=== PATIENT | female | born 1970 | race Caucasian/White ===

== ENCOUNTER 2021-02-18 08:20 | Outpatient (CLI) | payer BC, SELFPAY ==
--- NOTE | 2021-02-18 08:00 | ECG_ITS ---
Measurements Intervals [place] Rate: 75 P: 20 [place]: 149 QRS: 30 QRSD: 101 T: 21 QT: 354 QTc: 396 Interpretive Statements SINUS RHYTHM MINIMAL Q WAVES- INFERIOR LEADS BORDERLINE ECG Electronically Signed On 02-18-2021 16:22:50 CASHIER OR CHECKER STOCK CLERK by Anirudh Albrecht D.O.
== END 2021-02-18 08:21 | disposition home or self-care (01) ==
LOC: ANHSURGERY 08:24
PROVIDERS: PCP Family Medicine; Visit Provider Otolaryngology
DX: Z01.810 Encounter for preprocedural cardiovascular examination (principal); I10 Essential (primary) hypertension
CPT/HCPCS: 93005

== ENCOUNTER → 2021-02-19 00:31 | Outpatient (CLI) | payer BC, SELFPAY ==
[2021-02-19 20:10] LABS: SARS-CoV-2 RNA PCR Negative
== END ==
PROVIDERS: PCP Family Medicine; Visit Provider Otolaryngology
DX: Z01.812 Encounter for preprocedural laboratory examination (principal); Z20.822 Contact with and (suspected) exposure to COVID-19
CPT/HCPCS: C9803; U0003; U0005

== ENCOUNTER 2021-02-22 00:45 | Day surgery (SDC) | payer BC, SELFPAY ==
[2021-02-15 14:42] VITALS: BMI 44.9
--- NOTE | 2021-02-15 14:58 | PC.NURSE ---
Report to the Outpatient Waiting Room, entrance under the green pavilion located off [facility], at time 6:15 on date 02/22/21. OR Time: 8:15. - You and your visitor will be asked a series of questions to screen for COVID 19 for your protection. - A mask is required within the hospital. - Only one visitor is allowed at this time. Patient visitors will be guided where to wait when not with patient. Preoperative COVID Testing Requirements: No COVID Test needed if: (proof is required; if not received patient will have Rapid Test prior to entry) - Patient has received COVID Vaccine at least 14 days prior to procedure date or - Patient has positive COVID test result within last 90 days of surgery date. COVID Test needed if above criteria is not met If not COVID vaccinated a COVID test must be conducted within 72 hours of surgery and patient is asked to isolate self from time of testing until procedure. You will go to the [employer] [facility] for your COVID testing. The [employer] [facility] is located at the corner of [address] [facility]. COVID TEST 02/19 AT 9:15 You will only be called if COVID results are positive and your surgeon may reschedule your elective surgery date. Patients may have clear liquids (water, carbonated beverages, clear teas, apple juice) until 3 hours prior to surgery with a maximum of 20 ounces. - No food from midnight until time of surgery - Infants may have breast milk until 4 hours before surgery, infant formula 6 hours prior to surgery. - Children will be allowed to drink immediately following surgery. If applicable, please bring a bottle or sippy cup to assist with drinking. Juice, water, soda, and popsicles are readily available. For infants on formula, please bring formula the day of surgery. Pacifiers are allowed. Take the following medications with a SIP of water the morning of surgery: METOPROLOL Medications to discontinue per physician: VITAMINS/SUPPLEMENTS Date to take last dose: 02/18/21 Please no make-up, nail nepalese, hairspray, perfume, deodorant, or body powder the day of surgery. No jewelry (including any body piercings) or valuables the day of surgery, leave them at home. Please take a shower or bath the night before, or the morning of, surgery with an antibacterial soap. Wear comfortable, loose fitting clothing. Children are encouraged to wear pajamas. - Jewelry must be removed prior to entering the operating room. Rings and piercings that are not removed may be cut off. - The hospital will not accept responsibility for valuables. - Please leave all valuables, including medications, at home the day of surgery. If you are going home after surgery, a licensed tow motor driver must drive you home. - NO public transportation without another adult. - We recommend that an adult stay with you for 24 hours following discharge. - We also recommend that you do not drive, make important decision, drink alcoholic beverages, or take any drugs that were not prescribed by your health care provider for at least 24 hours after your discharge time. For Pediatric surgeries, we recommend two adults accompany the child home (only one inside the building at this time). Follow any additional instructions given to you from your surgeon. Telephone instructions given to DEXTER BROWN and asked if any additional questions and then verbalized understanding. Patient advised to call surgeon office or pre surgery nurse liaison [phone] if any additional questions.
--- NOTE | 2021-02-21 12:50 | PM.IMHP ---
H&P: HPI History of Present Illness Date/Time: 02/21/21 12:50 Chief Complaint: Choking, coughing, gagging, thyroid nodule Narrative: patient presents for planned surgical procedure. No change in symptoms no change in history. Review of Systems Constitutional: Constitutional: Denies fatigue, Denies fever(s) and Denies lethargy Eyes: Eyes: Denies blurry vision and Denies change in vision ENT: Reports as per HPI Cardiovascular: Cardiovascular: Denies chest pain Respiratory: Respiratory: Denies cough Endocrine: Endocrine: Denies fatigue Hematologic/Lymphatic: Hematologic/Lymphatic: Denies easy bleeding, Denies easy bruising and Denies lymphadenopathy Allergic/Immunologic: Allergic/Immunologic: Denies seasonal rhinorrhea [facility] Past Medical History Medical History Allergies Arthritis Degenerative arthritis of knee, bilateral Hypertension Surgical History Surgical History History of appendectomy History of carpal tunnel surgery right 2009 left 2013 Family History Family History Father Hypertension Cerebrovascular accident Mother Hypertension Sibling Hypertension Grandparent Diabetes mellitus Hypertension Cerebrovascular accident Heart disease Stomach cancer Grandparent Leukemia Social History Social History Smoking packs per day: 0.5 Smoking cigarettes per day: 10.0 Years smoked: 9 Smoking pack-years: 4.50 Smoking status: Former smoker Tobacco type: cigarettes Second hand tobacco smoke exposure: No Smoking end date: 03/12/95 Alcohol intake: current Drinks per week: 6 Alcohol use details: wine/bourbon Substance use: current Substance use type: marijuana Last use: 01/25/21 Additional occupation/education comments: customer service, dispatcher Gender identity (if verbalized by the patient): Female Spiritual care concerns: No Agree to blood products: Yes Meds Home Medications and Allergies Home Medications Medication Instructions Recorded Confirmed Type hydrochlorothiazide 25 mg tablet 25 mg PO DAILY #90 tablet 11/24/20 02/15/21 Rx metoprolol succinate 25 mg 25 mg PO DAILY 01/21/21 02/15/21 History tablet,extended release 24 hr cholecalciferol (vitamin D3) 1,250 1,250 mcg PO WEEKLY #12 cap 01/26/21 02/15/21 Rx mcg (50,000 unit) capsule Allergies Allergy/AdvReac Type Severity Reaction Status Date / Time lisinopril Allergy Rash Verified 02/15/21 14:41 Exam Const: General: cooperative, healthy appearing, comfortable, well developed and alert HENMT: Head: normal to inspection, normocephalic and atraumatic Ears: hearing grossly normal bilaterally, external ears normal, TM's normal bilaterally and EAC's normal General nose exam: Normal external nose present, Normal nares present, No nasal polyps present, Normal nasal mucous membranes and turbinates present and Normal septum present Face and sinus: normal facial exam Mouth: Yes Normal oral and palatal mucosa present, Yes lip normal, Yes tongue normal, Yes oropharynx normal and Yes moist mucous membranes Teeth and gingiva: dentition normal and gingiva normal Throat: posterior oropharynx normal, tonsils normal and uvula midline Eyes: General: appearance normal, both eyes and all related structures Periorbital: periorbital findings normal Eyelids: eyelids normal Conjunctivae: conjunctivae normal Sclera: sclerae normal Neck: Neck: normal visual inspection, full ROM and no lymphadenopathy Thyroid: abnormal thyroid and solitary palpable nodule ( Isthmus) centrally Lymphatic: no lymphadenopathy noted Resp: Effort & Inspection: normal respiratory effort and able to speak in complete sentences Cardio: Jugular venous distension: no JVD Neuro: Rental Representative
[2021-02-22] VITALS (9 sets, daily range): BP systolic 127–168; BP diastolic 78–102; PULSE 69–97; RESP 9–20; TEMP 36.2–36.4; O2SAT 92–98
[2021-02-22] MEDS: ACETAMINOPHEN 500 MG TABLET 1000 MG PO (06:41)
[2021-02-22] MEDS: LACTATED RINGERS 1,000 ML 30 ML IV CONT ×2 (06:45→08:51)
--- NOTE | 2021-02-22 06:55 | WPDANESEPPF ---
Anes - Initial Pre Proc Eval Procedure: Operation Date: 02/22/21 08:15 Proposed Procedures p Thyroidectomy (Isthmus) with Laryngeal Nerve Monitor - Adolph Ledesma MD Date/Time: 02/22/21 06:55 Surgeon: Adolph Ledesma MD Pre Op Diagnosis: Fibroid nodule Isthmus Patient Data Age: 50 Gender: F Height: 1.65 m Weight: 122.47 kg Allergies Allergy/AdvReac Type Severity Reaction Status Date / Time lisinopril AdvReac Mild Rash Verified 02/22/21 06:25 Home Medications Medication Instructions Recorded Confirmed Type hydrochlorothiazide 25 mg tablet 25 mg PO DAILY #90 tablet 11/24/20 02/22/21 Rx metoprolol succinate 25 mg 25 mg PO DAILY 01/21/21 02/22/21 History tablet,extended release 24 hr cholecalciferol (vitamin D3) 1,250 1,250 mcg PO WEEKLY #12 cap 01/26/21 02/22/21 Rx mcg (50,000 unit) capsule Patient hx anesthesia problems: none Family hx anesthesia problems: none Results Review: All pre-operative results and documents have been reviewed as part of the pre-operative evaluation. REPLACED BY [facility] Past Medical History Medical History Allergies Arthritis Degenerative arthritis of knee, bilateral Hypertension Surgical History Surgical History History of appendectomy History of carpal tunnel surgery right 2009 left 2013 Family History Family History Father Hypertension Cerebrovascular accident Mother Hypertension Sibling Hypertension Grandparent Diabetes mellitus Hypertension Cerebrovascular accident Heart disease Stomach cancer Grandparent Leukemia Social History Social History (Updated 02/22/21 @ 06:55 by Jesus Blum MD) Smoking packs per day: 0.5 Smoking cigarettes per day: 10.0 Years smoked: 9 Smoking pack-years: 4.50 Smoking status: Former smoker Tobacco type: cigarettes Second hand tobacco smoke exposure: No Smoking end date: 03/12/95 Alcohol intake: current Drinks per week: 4 Alcohol use details: wine/bourbon Substance use: current Substance use type: marijuana Last use: 01/25/21 Living arrangements: with family Additional occupation/education comments: customer service, dispatcher Gender identity (if verbalized by the patient): Female Spiritual care concerns: No Agree to blood products: Yes Anes - Eval Final PreProcedure Day of Procedure 02/22/21 06:55 Patient weight: morbidly obese Heart: regular rate and rhythm Lungs: clear to auscultation Airway: Mallampati scale class II Neurological: alert and oriented Last oral intake: >/= 8 hours ASA classification: III Emergent: no Anesthetic plan: proceed Anesthesia type and monitoring: general ETT and standard monitoring Results Review: All pre-operative results and documents have been reviewed as part of the pre-operative evaluation. Informed Consent: The patient's anesthetic plan and its attendant risks and benefits were discussed with the patient/family/POA. Questions were solicited and answers provided to the satisfaction of the patient/family/POA.
--- NOTE | 2021-02-22 07:16 | WPDHPUPDATE1 ---
History and Physical Update Update Date/Time: 02/22/21 07:16 History and Physical has been reviewed, including an updated exam of the patient. There are NO changes in the patient's condition. Risks, benefits, and alternatives have been discussed and questions answered. Patient agrees to proceed with procedure.
[2021-02-22] MEDS: ceFAZolin 3 GM/D5W 100 ML 100 ML IVPB (07:29)
[2021-02-22] MEDS: LIDO 1%/EPINEPHRINE/PF 1:200,000 30 ML VIAL XX (07:56)
[2021-02-22] MEDS: fentaNYL CITRATE INJ (*CRX) 100 MCG/2 ML VIAL 25 MCG IV PUSH ×2 (08:57→09:13)
--- NOTE | 2021-02-22 09:01 | W.PM.PROC2 ---
Procedure Note - Detailed Date of Procedure 02/22/21 Pre-op Diagnosis Thyroid isthmus nodule, compression, choking, gagging, coughing Post-op Diagnosis same Procedure Performed Thyroid isthmusectomy Surgeon Adolph Ledesma MD Anesthesia general Indications See above Findings Large thyroid isthmus nodule removed with a small cuff of bilateral lobe tissue around it Description of Procedure Patient correctly identified consent verified in the preoperative holding area. Patient brought to OR. Time-out performed. General anesthesia induced endotracheal tube secured an airway. Patient prepped and draped a 2nd time-out performed midline surgical incision approximately 4 cm long marked. A 2.5 cc of 1% lidocaine with 1 100,000 parts epinephrine injected deep to it. Fifteen blade utilized to cut through skin epidermis and dermis. Platysma cut with Bovie electrocautery at a setting of 10 small subplatysmal flaps elevated ligature utilized to ligate the right anterior jugular vein. Nodule dissected using combination blunt dissection and ligature small branches of the bilateral inferior thyroid arteries were ligated supplying the very large isthmus nodule and isthmus. Isthmus dissected around using ligature and no time were the horizontal or lateral planes of the trachea dissected through meaning at no time was the tracheoesophageal groove and subsequently recurrent laryngeal nerves at risk. No parathyroids were identified. The lobe was removed. Patient to Anesthesia Valsalva. No bleeding noted hemostasis was excellent. The superior strap muscles were closed with 3-0 interrupted Vicryl. Platysma closed with 3-0 interrupted Vicryl. Deep dermal layer closed with 3-0 interrupted Vicryl skin closed with skin glue. She total blood loss approximately 1-2 cc. I performed all dictated portions of the procedure. There were no complications. Care the patient was turned over to Anesthesiology. Estimated Blood Loss 2 Drains No Packing No Pathology yes Complications No immediate complications Condition stable Disposition PACU
[2021-02-22] MEDS: ONDANSETRON INJ 4 MG/2 ML VIAL IV PUSH (09:37)
[2021-02-22] MEDS: diphenhydrAMINE HCl INJ 50 MG/ML VIAL 25 MG IV PUSH (09:37)
[2021-02-22] MEDS: oxyCODONE HCL (*CRX) 5 MG TAB IR PO (10:12)
== END 2021-02-22 10:58 | disposition home or self-care (01) ==
PROVIDERS: PCP Family Medicine; Visit Provider Otolaryngology
PROC: (CPT 60210; principal; 2021-02-22 08:15)
DX: D34 Benign neoplasm of thyroid gland (principal); E06.3 Autoimmune thyroiditis; I10 Essential (primary) hypertension; Z87.891 Personal history of nicotine dependence; F12.90 Cannabis use, unspecified, uncomplicated; E66.01 Morbid (severe) obesity due to excess calories; Z68.42 Body mass index [BMI] 45.0-49.9, adult
CPT/HCPCS: 60210; 88307; A9270; J0330; J0690; J1100; J1200; J2250; J2405; J2704; J3010; J7120

== ENCOUNTER 2023-04-17 15:00 | Outpatient (RCR) | payer BC, SELFPAY ==
--- NOTE | 2023-04-02 13:29 | PTOPEVAL1 ---
Assessment and note entered by Rosy Otero, PT Evaluation Information Assessment Status Evaluation Diagnosis right total knee replacement Therapy conditions stiffness right knee, abnormal gait, weakness Onset 03/09/23 Subjective Information Finished home health last week. Hasn't had to use 2w-w in a week and a half Is finished with prescription pain med, tyelnol every now and then Reported Pain Level Pain Score 4: Self Report Assessment PT Clinical Summary Pt presents approx 3 weeks post right total knee joint replacement. Daniel's ability to ambulate without AD and appears to have more difficulty with LLE during ambulation. ROM is decreased overall, strength is decreased overall, and daniel's continued swelling compared to left knee. She also continues to have pain but appears to be appropriate levels of pain for this phase of healing. Pt will benefit from therapy to address deficits and improve function without pain. Plan of Care Interventions Electrical Stimulation,Manual Therapy,Neuro Re- education,Therapeutic Activities,Therapeutic Exercise,Self-Care/Home Management PT Services Indicated Yes Treatment Frequency and 2x weekly x 8 weeks Duration These treatments will address the objective and functional deficits as defined above. The patient will be advanced safely and appropriately in order for the patient to progress towards his/her prior level of function. Additional exercises will be introduced and as well as a comprehensive home exercise program upon discharge, if needed, ?to ensure carryover of functional gains achieved in the clinic. This treatment plan has been reviewed and agreement upon by the patient.
--- NOTE | 2023-04-02 13:30 | OPREHPOC ---
Outpatient Therapy Plan of Care This is a Multidisciplinary Plan of Care that may contain components documented by all disciplines (PT, OT, and ST.) PT Problem 1 PT Problem #1 Knowledge Deficit PT Goal 1 Goal Pt will be independent in HEP Pt will verbalize understanding of diagnosis and prognosis Target Visit 8 PT Goal 1 Goal Pt will demo PROM 0-130 for improved mobility and stair navigation Target Visit 8 PT Goal 2 Goal Pt will demo AROM 0-130 for improved mobility and stair navigation Target Visit 16 PT Problem 3 PT Problem #3 Pain PT Goal 1 Goal Pt will report greatest pain level at 3/10 or less to improve ADLs and activities Target Visit 8 PT Goal 2 Goal Pt will report highest pain level at 1/10 Target Visit 16 PT Goal 1 Goal Pt will demo strength of 4/5 RLE quad and hamstring Target Visit 8 PT Goal 2 Goal Pt will demo strength of 4+/5 RLE quad and hamstring Target Visit 16 PT Goal 1 Goal Pt will demo decresaed swelling RLE by 1 cm in all measured areas Target Visit 8 PT Goal 2 Goal Pt will demo swelling measurements within 1cm of unaffected LE Target Visit 16
--- NOTE | 2023-04-12 16:57 | PCPTNOTE ---
Patient called & cancelled scheduled appointment this date due to illness
--- NOTE | 2023-04-18 17:20 | PCPTNOTE ---
Patient did not show up for scheduled appointment 04/17/2023
--- NOTE | 2023-04-20 08:23 | PCPTNOTE ---
Patient called & cancelled scheduled appointment this date due to financial hardship. Pt left a message that she would call back and discuss continued therapy.
--- NOTE | 2023-04-23 14:30 | PCPTNOTE ---
Patient did not show up for scheduled appointment this date. Called pt this AM to confirm today's appointment based on message left last week related to attendance. Pt did not answer, voicemail left to call back. Pt did not call back, did not appear for session.
--- NOTE | 2023-05-01 08:27 | PTOPDC ---
Assessment and note entered by Rosy Otero, PT Assessment Status Discharge - Pt Not Present Diagnosis right total knee replacement stiffness right knee, abnormal gait, weakness Onset 03/09/23 Subjective Information Finished home health last week. Hasn't had to use 2w-w in a week and a half Is finished with prescription pain med, tyelnol every now and then Assessment PT Clinical Summary Pt attended 3 sessions of therapy post total knee replacement including evaluation. She has since ceased coming to therapy, stating financial hardship. Attempted to contact patient in order to adjust frequency and increase HEP to independent progression however patient did not return contact attempts. Thus patient is being discharged for nonattendance at this time.
== END 2023-05-21 10:07 | disposition home or self-care (01) ==
LOC: ANHHIPT 15:00
PROVIDERS: PCP Physician Assistant Medical; Visit Provider Orthopaedic Surgery
DX: Z47.1 Aftercare following joint replacement surgery (principal); Z96.651 Presence of right artificial knee joint
CPT/HCPCS: 97014; 97016; 97110; 97112; 97161; G0283

== ENCOUNTER 2023-05-21 15:25 | Outpatient (CLI) | payer BC, SELFPAY ==
[2023-05-21 15:36] LABS: Basophils Percent Auto 0.3 % (0.2-1.2); Eosinophils Absolute Auto 0.3 K/mm3 (0-0.3); Eosinophils Percent Auto 3.1 % (0-4.4); Hematocrit 47.1 % (37.0-47.0); Immature Granulocyte Absolute 0.02 K/mm3 (0.00-0.031); Immature Granulocyte Percent A 0.2 % (0-0.5); Lymphocytes Percent Auto 25.1 % (18.3-44.2); Mean Corpuscular Hemoglobin 31.4 pg (26-34); Mean Corpuscular Volume 92.4 fl (80-100); Mean Platelet Volume 9.5 fl (7.4-10.4); Monocytes Absolute Auto 0.5 K/mm3 (0.1-0.6); Monocytes Percent Auto 5.8 % (2.6-8.5); Neutrophils Absolute Auto 5.7 K/mm3 (1.3-6.7); Neutrophils Percent Auto 65.5 % (45.5-73.1); Platelet Count Result 325 k/mm3 (150-375); Red Cell Distribution Width 12.8 % (11.5-14.5); White Blood Count 8.8 K/mm3 (4.5-10.0)
[2023-05-21 16:29] LABS: Alanine Aminotransferase 21 U/L (6-35); Albumin Level 4.7 g/dL (3.5-5.1); Alkaline Phosphatase 89 U/L (38-126); Anion Gap 8 mmol/L (8-16); Aspartate Amino Transferase 25 U/L (14-36); Blood Urea Nitrogen 24 mg/dL (7-17); Calcium 10.7 mg/dL (8.4-10.2); Carbon Dioxide 32 mmol/L (22-30); Chloride 100 mmol/L (98-107); Estimated Glomerular Filt Rate > 60; Glucose 120 mg/dL (65-110); Potassium 4.2 mmol/L (3.4-5.0); Sodium 140 mmol/L (137-145)
[2023-05-24 12:59] LABS: Erythropoietin (EPO) 5.6 mIU/mL (2.6-18.5)
== END 2023-05-21 15:26 | disposition home or self-care (01) ==
LOC: ANHLAB 15:26
PROVIDERS: Nurse Practitioner Family; PCP Physician Assistant Medical; Visit Provider Internal Medicine Hematology & Oncology
DX: D75.1 Secondary polycythemia (principal)
CPT/HCPCS: 36415; 80053; 82668; 85025